=== PATIENT | female | born 1980 ===

== ENCOUNTER 2024-10-13 00:19 | Inpatient (IN) | payer OTHER ==
[~2024-10-13] VITALS: Ht 165.1 cm; Wt 80.5 kg
[2024-10-13] MEDS ORDERED: 0.9% SODIUM CHLORIDE 10 ML SYRINGE IVP PRN (01:00)
[2024-10-13] MEDS: SODIUM CHLORIDE 0.9% 1,000 ML IV ONE (01:11)
[2024-10-13] MEDS: SODIUM CHLORIDE 0.9% 2,400 ML IV ONE (01:12)
[2024-10-13 01:13] LABS: BASOPHILS % (AUTO) 0.9 % (0.0-2.0); EOSINOPHILS % (AUTO) 2.4 % (1.0-6.0); HEMOGLOBIN 11.7 g/dL (12.0-16.0); LYMPHOCYTES # (AUTO) 2.3 K/uL (1.0-4.8); LYMPHOCYTES % (AUTO) 23.8 % (22.0-44.0); MEAN CORPUSCULAR HGB CONC 33.3 G/dL (31.0-37.0); MEAN CORPUSCULAR VOLUME 93 fL (80-100); MONOCYTES # (AUTO) 0.9 K/uL (0.1-1.0); MONOCYTES % (AUTO) 9.2 % (2.0-9.0); NEUTROPHILS % (AUTO) 63.7 % (40.0-70.0); PLATELET COUNT (AUTO) 264 K/uL (150-450); RED BLOOD CELL COUNT(AUTO) 3.76 MIL/uL (4.00-5.20); RED CELL DISTRIBUTION WIDTH 14.2 % (11.5-14.5); WHITE BLOOD COUNT (AUTO) 9.5 K/uL (4.5-11.0)
[2024-10-13 01:22] LABS: ANION GAP 6 mmol/L (8-16); CALCIUM, TOTAL 7.9 mg/dL (8.8-10.5); CARBON DIOXIDE 26 mmol/L (22-29); CHLORIDE 107 mmol/L (98-107); CREATININE 0.55 mg/dL (0.60-1.30); GLOMERULAR FILTR. RATE CALC > 60 mL/min (>60); GLUCOSE,RANDOM 98 mg/dL (70-110); POTASSIUM 3.2 mmol/L (3.5-5.1); SODIUM SERUM 139 mmol/L (136-145); UREA NITROGEN, BLOOD 10 mg/dL (7-18)
[2024-10-13] MEDS: VANCOMYCIN HCL 1 GM in DEXTROSE 5%-WATER 250 ML IV ONE (01:22)
[2024-10-13 01:31] LABS: PROTHROMBIN TIME 10.1 SEC (9.4-11.6)
[2024-10-13 01:32] LABS: LACTIC ACID 0.8 mmol/L (0.4-2.0)
[2024-10-13] MEDS ORDERED: SODIUM CHLORIDE 0.9% 100 ML ONE (06:12)
[2024-10-13] MEDS ORDERED: IOHEXOL 350 MG/ML 100 ML VIAL ONE (06:12)
[2024-10-13] MEDS ORDERED: DICYCLOMINE HCL 10 MG CAPSULE PO PRN (06:45)
[2024-10-13] MEDS ORDERED: LORazepam 1 MG TABLET PO PRN (06:45)
[2024-10-13] MEDS ORDERED: LOPERAMIDE HCL 2 MG/15 ML SUSPENSION UDCUP PO PRN (06:45)
[2024-10-13] MEDS ORDERED: MAG HYDROX/ALUMINUM HYD/SIMETH ES 30 ML SUSPENSION UDCUP PO PRN (06:45)
[2024-10-13] MEDS ORDERED: IBUPROFEN 600 MG TABLET PO PRN (06:45)
[2024-10-13] MEDS ORDERED: HydrOXYzine PAMOATE 50 MG CAPSULE PO PRN (06:45)
[2024-10-13] MEDS ORDERED: ACETAMINOPHEN 325 MG TABLET PO PRN ×2 (06:45→08:00)
[2024-10-13] MEDS ORDERED: CloNIDine HCL 0.1 MG TABLET PO PRN (06:45)
[2024-10-13] MEDS ORDERED: BACLOFEN 10 MG TABLET PO PRN (06:45)
[2024-10-13] MEDS ORDERED: TraZODone HCL 50 MG TABLET PO PRN (06:45)
[2024-10-13] MEDS ORDERED: PROMETHAZINE HCL 25 MG TABLET PO PRN (06:45)
[2024-10-13] MEDS: SODIUM CHLORIDE 0.45% 1,000 ML IV SCH (06:47)
[2024-10-13] MEDS: VANCOMYCIN HCL 1.25 GM in DEXTROSE 5%-WATER 250 ML IV SCH (07:42)
[2024-10-13] MEDS ORDERED: ZOLPIDEM TARTRATE 5 MG TABLET PO PRN (08:00)
[2024-10-13] MEDS ORDERED: ONDANSETRON HCL 4 MG/2 ML VIAL IVP PRN (08:00)
[2024-10-13] MEDS ORDERED: POTASSIUM CHL 10 MEQ/WATER 50 ML IV PRN (08:00)
[2024-10-13] MEDS ORDERED: MAGNESIUM HYDROXIDE SUSPENSION 30 ML UDCUP PO PRN (08:00)
[2024-10-13] MEDS: POTASSIUM CHLORIDE 20 MEQ ER TABLET PO PRN (08:13)
[2024-10-13 09:11] VITALS: BP 112/74; PULSE 63; RESP 18; TEMP 97.7; O2SAT 99
[2024-10-13] MEDS: FAMOTIDINE 20 MG TABLET PO SCH (10:22)
[2024-10-13 13:56] LABS: APPEARANCE,URINE CLEAR (CLEAR); BILIRUBIN,URINE NEGATIVE (NEGATIVE); COLOR,URINE COLORLESS (YELLOW); GLUCOSE, URINE (UA) NEGATIVE (NEGATIVE); KETONES,URINE NEGATIVE (NEGATIVE); LEUKOCYTE ESTERASE ,URINE NEGATIVE (NEGATIVE); NITRATE,URINE NEGATIVE (NEGATIVE); OCCULT BLOOD,URINE NEGATIVE (NEGATIVE); PROTEIN,URINE NEGATIVE (NEGATIVE); SPECIFIC GRAVITIY, URINE 1.009 (1.003-1.030); UROBILINOGEN,URINE <=1.0 mg/dL (<=1.0)
[2024-10-13] MEDS: CefTRIAXone 1 GM/DEXTROSE 50 ML IV SCH (13:56)
[2024-10-13 16:51] VITALS: BP 112/74; PULSE 63; RESP 18; TEMP 97.7; O2SAT 99
[2024-10-13 19:50] VITALS: BP 121/74; PULSE 64; RESP 17; TEMP 98.2; O2SAT 100
[2024-10-14 04:31] VITALS: BP 123/81; PULSE 54; RESP 17; TEMP 98.1; O2SAT 99
[2024-10-14 07:12] LABS: ANION GAP 7 mmol/L (8-16); CALCIUM, TOTAL 8.1 mg/dL (8.8-10.5); CARBON DIOXIDE 26 mmol/L (22-29); CHLORIDE 105 mmol/L (98-107); CREATININE 0.54 mg/dL (0.60-1.30); GLOMERULAR FILTR. RATE CALC > 60 mL/min (>60); GLUCOSE,RANDOM 91 mg/dL (70-110); POTASSIUM 3.5 mmol/L (3.5-5.1); SODIUM SERUM 138 mmol/L (136-145); UREA NITROGEN, BLOOD 5 mg/dL (7-18)
[2024-10-14 08:32] VITALS: BP 133/81; PULSE 55; RESP 20; TEMP 98.1; O2SAT 100
[2024-10-14 17:03] VITALS: BP 103/75; PULSE 56; RESP 20; TEMP 98.1; O2SAT 100
[2024-10-14 19:20] VITALS: BP 109/80; PULSE 58; RESP 18; TEMP 98.2; O2SAT 100
[2024-10-14] MEDS: VANCOMYCIN HCL 1.5 GM in DEXTROSE 5%-WATER 250 ML IV SCH (19:51)
[2024-10-15 04:56] VITALS: BP 125/76; PULSE 56; RESP 18; TEMP 98.4; O2SAT 98
[2024-10-15 06:15] LABS: ANION GAP 4 mmol/L (8-16); CALCIUM, TOTAL 8.4 mg/dL (8.8-10.5); CARBON DIOXIDE 27 mmol/L (22-29); CHLORIDE 104 mmol/L (98-107); CREATININE 0.54 mg/dL (0.60-1.30); GLOMERULAR FILTR. RATE CALC > 60 mL/min (>60); GLUCOSE,RANDOM 90 mg/dL (70-110); POTASSIUM 3.7 mmol/L (3.5-5.1); SODIUM SERUM 135 mmol/L (136-145); UREA NITROGEN, BLOOD 8 mg/dL (7-18)
[2024-10-15 08:33] VITALS: BP 132/84; PULSE 53; RESP 18; TEMP 97.9; O2SAT 99
[2024-10-15 20:00] VITALS: BP 110/73; PULSE 70; RESP 18; TEMP 98.2; O2SAT 99
== END 2024-10-15 21:02 | disposition left against medical advice (07) | DRG 894 ==
LOC: EMS 00:28 → EDH 07:00 → 6S 08:53
PROVIDERS: ADMIT Hospitalist; ATTEND Hospitalist
DX: F11.93 Opioid use, unspecified with withdrawal (principal); R65.10 Systemic inflammatory response syndrome (SIRS) of non-infectious origin without acute organ dysfunction; Z53.21 Procedure and treatment not carried out due to patient leaving prior to being seen by health care provider; M79.89 Other specified soft tissue disorders; Z87.891 Personal history of nicotine dependence; Z88.1 Allergy status to other antibiotic agents; Z88.2 Allergy status to sulfonamides
CPT/HCPCS: 71045; 73201; 80048; 80202; 81003; 83605; 84132; 84145; 84703; 85025; 85610; 87040; 93005; 96361; 96365; 99285; J0696; J3370; J7030; J7050; J7060; 36415-L1; 36415-TC